=== PATIENT | female | born 1985 | race Caucasian/White ===

== ENCOUNTER 2017-12-06 17:05 | Inpatient (IN) | payer BC ==
[2017-12-06 18:09] VITALS: BMI 27.4
--- NOTE | 2017-12-06 18:58 | OBADHP ---
Datetime: 12/06/2017 18:45 IP Chief Complaint Other: intrauterine demise Admit Comment, IP Provider: Pt is at 23 wks [address] IUFD Saw Dr Kim x1 and had sono done abo ut 11/26/17 showing 21 wks with apparent some congenital anomalies and was given consult with perinato logist who counseled her and seen today by perinatologist for follow up and found with 23 wks IUFD. S ent to L/D for delivery Spoke with Dr Carey who confirmed above info and refers he did sono today and confirmed demise and no placenta previa and advised for misoprostone induction and to have placen speedy tissue sent on Hanks solution for chromosomal studies Discussed with pt and explained the situati on and the recomendations and understands and agreed Questions were answered to the best of my knowle dge and abilities. Extremities - PN: Normal Abdomen - PN: Abnormal Breast - PN: Not Done Lungs - PN: Normal Thyroid - PN: Normal HEENT - PN: Normal General - PN: Normal IP Fetus A Comments: IUFD FHR - Baseline A Provider: none Membranes, Provider: Intact Comments, ACOG Physical Exam: Abd soft fundus at umb NT Ext no calf tenderness Gestation - Est Wks by US: 23 wks IP Chief Complaint: Other NICHD Variability Prov Fetus A: n/a Genitourinary Exam: Normal DTRs - PN: Normal IP Adm Impression: , intrauterine ; Demise IP Admit Plan: Admit to unit; Initiate labor induction protocol
[2017-12-06 19:15] LABS: BASO % 0.5 % (0.0-2.0); EOS # 0.1 K/uL (0.0-0.7); EOS % 1.3 % (0.0-4.0); HEMOGLOBIN 11.4 g/dL (12.0-16.0); LYMPH # 1.9 K/uL (1.0-4.3); LYMPH % 28.2 % (20.0-40.0); MEAN CELL VOLUME 86.3 fl (81.0-99.0); MEAN CORPUSCULAR HEMOGLOBIN 29.7 pg (27.0-31.0); MEAN CORPUSCULAR HGB CONC 34.4 g/dL (33.0-37.0); MEAN PLATELET VOLUME 8.5 fl (7.2-11.7); MONO # 0.7 K/uL (0.0-0.8); MONO % 10.8 % (0.0-10.0); NEUT % 59.2 % (50.0-75.0); NRBC % 0.1 % (0.0-0.0); RBC 3.85 Mil/uL (3.80-5.20); RED CELL DISTRIBUTION WIDTH 15.3 % (11.5-14.5); WHITE BLOOD COUNT 6.7 K/uL (4.8-10.8)
[2017-12-06 19:25] LABS: INR 0.9
[2017-12-06 19:27] LABS: PARTIAL THROMBOPLASTIN TIME 28.8 Seconds (25.6-37.1)
[2017-12-06] MEDS ORDERED: Oxytocin 30 UNIT 30 UNITS/500 ML BAG IV ONE (19:41)
[2017-12-06] MEDS ORDERED: Magnesium Sulfate 4 gm/100 ml 4 GM/100 ML BAG IVPB ONE (21:37)
[2017-12-06 22:39] LABS: ALB/GLOB RATIO 1.2 (1.0-2.1); ALBUMIN 3.4 g/dL (3.5-5.0); ALT/SGPT 28 U/L (9-52); AST/SGOT 21 U/L (14-36); BLOOD UREA NITROGEN 8 mg/dl (7-17); CALCIUM 8.9 mg/dL (8.4-10.2); GFR NON-AFRICAN AMERICAN > 60
[2017-12-06] MEDS ORDERED: Magnesium Sul 40GM/1L SW 40 GM/1,000 ML ML IV ONE ×2 (22:58→23:58)
[2017-12-06] MEDS ORDERED: Nalbuphine 20 mg/ml Inj (1 ml) IVP PRN (23:13)
[2017-12-07] MEDS: Lactated Ringer's 1,000 ML IV SCH ×4 (03:00→23:23)
[2017-12-07] MEDS ORDERED: Fentanyl/Bupivacaine HCl 250 ML EPI ONE (03:05)
[2017-12-07] MEDS: OXYTOCIN/0.9 % NS 20 UNIT/1,000 ML BAG IV SCH ×3 (06:10→14:44)
[2017-12-07] MEDS ORDERED: Oxycodone/Acetaminophen 5/325 mg Tab PO PRN (06:29)
[2017-12-07] MEDS ORDERED: cefOXitin Sodium 1 GM in Sodium Chloride 0.9% 100 ML IVPB SCH (07:00)
--- NOTE | 2017-12-07 07:02 | OBDS ---
MATERNAL INFORMATION Maternal Complications: Other Other Maternal Complications: IUFD/Pre-eclampsia LABOR SUMMARY EDC: 04/07/2018 00:00 No. Babies in Womb: 0 LABOR INFORMATION Reason for Induction: Demise Cervical Ripening Agents: Cytotec @ (Annotations: 400 mcg applied by vaginally) Group B Beta Strep: Not Done Steroids Given: None Reason Steroids Not Administered: Not Applicable VAGINAL DELIVERY Episiotomy: None Laceration Extension: N/A Laceration Type: None Laceration Repair: Not Applicable Laceration Repair Note: n/A Sponge Count Correct: Yes Sharps Count Correct: N/A CSECTION DELIVERY Primary Indication: N/A Secondary Indication: N/A CSection Incision: N/A Uterine Closure: N/A
[2017-12-07 07:11] LABS: ALB/GLOB RATIO 1.2 (1.0-2.1); ALBUMIN 3.4 g/dL (3.5-5.0); ALT/SGPT 31 U/L (9-52); AST/SGOT 22 U/L (14-36); BLOOD UREA NITROGEN 5 mg/dl (7-17); CALCIUM 7.3 mg/dL (8.4-10.2); GFR NON-AFRICAN AMERICAN > 60
[2017-12-07] MEDS: cefOXitin IV 1 gm in Dextrose 1 GM/50 ML BAG IVPB SCH ×2 (09:00→17:30)
[2017-12-07 11:29] LABS: HEMOGLOBIN 11.7 g/dL (12.0-16.0); MEAN CELL VOLUME 85.9 fl (81.0-99.0); MEAN CORPUSCULAR HEMOGLOBIN 29.4 pg (27.0-31.0); MEAN CORPUSCULAR HGB CONC 34.2 g/dL (33.0-37.0); RBC 3.98 Mil/uL (3.80-5.20); RED CELL DISTRIBUTION WIDTH 14.7 % (11.5-14.5); WHITE BLOOD COUNT 12.6 K/uL (4.8-10.8)
[2017-12-07] MEDS ORDERED: Magnesium Sul 40GM/1L SW 40 GM/1,000 ML ML IV ONE (21:44)
[2017-12-08] MEDS: cefOXitin IV 1 gm in Dextrose 1 GM/50 ML BAG IVPB SCH (01:02)
--- NOTE | 2017-12-08 12:24 | OBPPN ---
Datetime: 12/08/2017 12:18 PP Pain Prov: Within normal limits PP Pain Prov comment: No SOB, chest or leg pains PP Nausea Prov: Denies PP Flatus Prov: Yes PP Nausea Prov comment: No headaches or visual issues PP Breasts Prov: Normal PP Lungs Prov: Normal PP Abdomen/Uterus Prov: Abnormal PP Lochia Prov: Normal PP Vulva/Perineum Prov: Normal PP CVA Tenderness Prov: Normal PP Extremities Prov: Normal PP C/S Incision Prov: Not Applicable PP Progress Prov: Not Applicable PP Comments Phys Exam Prov: breast not engorged, NT Uterus above sp NT Lockia min Ext no calf tende rness Burr in place draining clear fluids PP Impression Prov: Induced Hypertension PP Plan Prov: Continue present management PP Impression Other Prov: s/p delivery of demise and pp elevatedc BP PP Progress Note Prov: MgSO4 had been decreased and Norvasc started will increase diet and try to D/ C magnesium Discussed with pt and understands and agreed IP PP Procedures: None
--- NOTE | 2017-12-08 14:19 | OBDS ---
DELIVERY PERSONNEL Delivery Doctor: Rita Mg MD Scrub Nurse: Lorena Rodriguez Nat Instructor: Gretchen Phelps RN MATERNAL INFORMATION Delivery Anesthesia: Epidural Medications in Delivery: pitocin Estimated Blood Loss (ml): 200 Placenta Cultured: No Maternal Complications: None; Other Other Maternal Complications: IUFD/Pre-eclampsia RN Comments: pbaby transferred to next room since parents doesnt want to see baby at this time Provider Comments: Dr Mg present and pt delivered spontaneously a demise girl appears AG A, skin peeling noted no gross anomalies noted Placenta came out complete and sample was taken to pathology in Hanks solution for chromosomal studies Uterus contracted well Continue MgSO4 and katie l start profilactic antibiotics Repeat blood work ordered. LABOR SUMMARY EDC: 04/07/2018 00:00 No. Babies in Womb: 0 Attempted: No Labor Anesthesia: Epidural LABOR INFORMATION Reason for Induction: Demise Onset of Labor: 12/07/2017 02:00 Complete Dilatation: 12/07/2017 05:35 Cervical Ripening Agents: Cytotec @ Group B Beta Strep: Not Done Steroids Given: None Reason Steroids Not Administered: Not Applicable MEMBRANES Membranes Rupture Method: Spontaneous Rupture of Membranes: 12/07/2017 05:34 Length of Rupture (hrs): 0.05 Amniotic Fluid Color: Clear Amniotic Fluid Amount: Large Amniotic Fluid Odor: Normal STAGES OF LABOR Stage 1 hrs: 3 Stage 1 min: 35 Stage 2 hrs: 0 Stage 2 min: 2 Stage 3 hrs: 0 Stage 3 min: 1 Total Time in Labor hrs: 3 Total Time in Labor min: 38 VAGINAL DELIVERY Episiotomy: None Laceration Extension: N/A Laceration Type: None Laceration Repair: Not Applicable Laceration Repair Note: n/A Initial Vag Sponge Count: 0 Final Vag Sponge Count: 0 Initial Vag Sharps Count: 0 Final Vag Sharps Count: 0 Sponge Count Correct: Yes Sharps Count Correct: N/A CSECTION DELIVERY Primary Indication: N/A Secondary Indication: N/A CSection Incision: N/A Uterine Closure: N/A BABY A INFORMATION Delivery Date/Time: 12/07/2017 05:37 Method of Delivery: Vaginal Born in Route : No : N/A Forceps: N/A Vacuum Extraction: N/A Shoulder Dystocia : No SHOULDER DYSTOCIA BABY A Delivery Date/Time: 12/07/2017 05:37 PRESENTATION/POSITION BABY A Presentation: Breech PLACENTA INFORMATION BABY A Placenta Delivery Time : 12/07/2017 05:38 Placenta Method of Delivery: Spontaneous Placenta Status: Delivered SCORES BABY A Heart Rate 1 min: Absent Resp Effort 1 min: Absent Reflex Irritability 1 min: No Response Muscle Tone 1 min: Flaccid Color 1 min: Blue/Pale SCORE 1 MIN: 0 Heart Rate 5 min: Absent Resp Effort 5 min: Absent Reflex Irritability 5 min: No Response Muscle Tone 5 min: Flaccid Color 5 min: Blue/Pale SCORE 5 MIN: 0 INFORMATION BABY A Gestational Age at Delivery: 23.0 Gestational Status: Infant Outcome : Stillborn Condition : poor Infant Sex: Female IDENTIFICATION/MEDS BABY A Vitamin K Given : Not Given Erythromycin Given: Not Given WEIGHT/LENGTH BABY A Infant Birthweight (gms): 0.380 grams CORD INFORMATION BABY A No. Cord Vessels: 3 Nuchal Cord : N/A Cord Blood Taken: N/A Infant Suction: None
--- NOTE | 2017-12-08 14:30 | CP.PCM.CON ---
History of Present Illness - History of Present Illness History of Present Illness: THE PATIENT IS A 32 YEAR OLD FEMALE WHO DOESN'T HAVE ANY SIGNIFICANT PMH. SHE HAD PRE-TERM DEMISE AT 23 WEEKS GESTATION AND WAS ADMIITED FOR LABOR INDUCTION. SHE HAD HYPERTENSION AFTERWARDS UP TO 155/105 AND IT WAS NOT CONTROLLED WELL WITH IV MAGNESIUM SULPHATE AND I WAS CALLED LAST EVENING BY DR DUKE. SHE VAS GIVEN 5 MGS OF AMLODIPINE TWICE LAST NIGHT. HER BLOOD PRESSURE WAS ELEVATED THIS MORNING AND 5 MGS AMLIODIONE WAS GIVEN AND HER BLOOD PRESSURE WAS 140/90 AT ABOUT 1 PM. SHE DENIES ANY CHEST PAIN, PALPITATIONS OR SOB. SHE FEELS BETTER TODAY. Past Patient History - Past Social History Smoking Status: Never Smoked Meds Allergies/Adverse Reactions: Allergies Allergy/AdvReac Type Severity Reaction Status Date / Time No Known Allergies Allergy Verified 12/06/17 18:10 - Medications Medications: Current Medications Amlodipine Besylate (Norvasc) 5 mg PO DAILY [facility] Last Admin: 12/08/17 09:45 Dose: 5 mg Docusate Sodium (Colace) 100 mg PO BID [facility] Last Admin: 12/07/17 17:50 Dose: 100 mg OXYTOCIN/0.9 % NS (Oxytocin 20 Unit/1000 Ml-Ns) 20 unit in 1,000 mls @ 125 mls/ hr IV .Q8H [facility] PRN Reason: Protocol Last Admin: 12/07/17 14:44 Dose: Not Given Lactated Ringer's (Lactated Ringer's) 1,000 mls @ 75 mls/hr IV .[id number] [facility] Last Admin: 12/07/17 23:23 Dose: 75 mls/hr Magnesium Sulfate (Magnesium Sul 40gm/1l Sw) 40 gm in 1,000 mls @ 50 mls/hr IV .Q20H ONE PRN Reason: 2 GM/HR Stop: 12/08/17 17:43 Last Admin: 12/07/17 21:58 Dose: 50 mls/hr Ibuprofen (Motrin Tab) 600 mg PO Q6 PRN PRN Reason: Pain, Mild (1-3) Oxycodone/Acetaminophen (Percocet 5/325 Mg Tab) 1 tab PO Q4 PRN PRN Reason: Pain, moderate (4-7) Stop: 12/10/17 06:30 Physical Exam - Respiratory Exam Respiratory Exam: Clear to Auscultation Bilateral - Cardiovascular Exam Cardiovascular Exam: REGULAR RHYTHM, +S1, +S2 - Extremities Exam Additional comments: TRACE EDEMA OF LE - Additional Findings Additional findings: EKG SINUS WITHOUT ECTOPY(READ INCORRECTLY HAVING A PVC BY THE MACHINE BUT THIS WAS FROM [employer]. Results - Vital Signs Recent Vital Signs: Last Vital Signs Temp Pulse 79 12/08/17 09:45 Resp BP 141/94 H 12/08/17 09:45 Pulse Ox - Labs Result Diagrams: 12/07/17 10:50 12/07/17 06:45 Labs: Laboratory Results - last 24 hr 12/07/17 20:55 Magnesium 5.7 H* D Assessment & Plan - Assessment and Plan (Free Text) Assessment: PRE-TERM DEMISE WITH LABOR INDUCTION HYPERTENSION Plan: WILL CONTINUE AMLODIPINE 5 MGS PO DAILY PATIENT DISCUSSED WITH DR DUKE AND HE WILL STOP THE MAGNESIUM SULPHATE AND CONTINUE THE AMLODIPINE
[2017-12-08] MEDS ORDERED: Magnesium Sul 40GM/1L SW 40 GM/1,000 ML ML IV ONE (15:26)
--- NOTE | 2017-12-09 09:30 | OBPPN ---
Datetime: 12/09/2017 09:26 PP Pain Prov: Within normal limits PP Pain Prov comment: No SOB, chest or leg pains PP Nausea Prov: Denies PP Flatus Prov: Yes PP Nausea Prov comment: Denies headaches or visual disturbances PP Breasts Prov: Normal PP Lungs Prov: Normal PP Abdomen/Uterus Prov: Abnormal PP Lochia Prov: Normal PP Vulva/Perineum Prov: Normal PP CVA Tenderness Prov: Normal PP Extremities Prov: Normal PP C/S Incision Prov: Not Applicable PP Progress Prov: Not Applicable PP Comments Phys Exam Prov: breast soft NE; Abd soft ND fundus firm above sp NT Ext no edema or calf tenderness DTR 2+ sym. PP Impression Prov: Normal progression PP Plan Prov: Discharge PP Impression Other Prov: PIH PP Progress Note Prov: Case had been discussed with hose sprayer who refers did EKG and normal and o k to d/C home on po Norvasc and he will also follow in office 1wk Discussed with pt understands and a greed Instrucitons given IP PP Procedures: None
--- NOTE | 2017-12-09 09:35 | OBDCSUM ---
Datetime: 12/09/2017 09:31 Discharged to, Provider: Home Follow up at, Provider: Dr Kim Disch Instr Activity: Bedrest; May be up to bathroom; May be up for meals; May Shower Disch Instr Diet: Regular Discharge Instructions, Provider: Specific instructions as noted Discharge Diagnosis, Provider: Preeclampsia; Delivery Discharge Time: 12/09/2017 09:31 Follow up in weeks, Provider: Contraception discussed, Prov: Yes Disch Activity Restrictions: No exercising; No lifting; No driving; Minimize walking; Minimize stair -climbing; No sexual activity; Nothing in vagina - [place], tampons, douche Discharge Comment, Provider: Rx for Norvasc 5mg given and pt also will follow up wt Dr Kruger 1 wk Discharge Diagnosis Prov Other: IUFD at 23 wks/ PIH Contraception after Delivery: Undecided Datetime: 12/09/2017 09:05 Discharged to, Provider: Home Follow up at, Provider: Dr. Kim Disch Instr Activity: Normal activity Disch Instr Diet: Regular Discharge Time: 12/09/2017 09:07 Follow up in weeks, Provider: 12/11/17 Disch Activity Restrictions: No sexual activity; Nothing in vagina - [place], tampons, douche
--- NOTE | 2017-12-09 10:05 | CARD ---
APPROVED REPORT Date of service: 12/08/2017 EKG Measurement Heart [id number] <Conclusion> Sinus rhythm with sinus arrhythmia with occasional premature ventricular complexes Nonspecific T wave abnormality Abnormal ECG
[2017-12-09 15:17] VITALS: BP 145/96; PULSE 62; RESP 18; TEMP 98.6; O2SAT 100
== END 2017-12-09 09:15 | disposition home or self-care (01) | DRG 774 ==
LOC: H.EROB2 17:05 → H.L&D 18:17
PROVIDERS: ADMIT Specialist; ATTEND Specialist
PROC: 10E0XZZ Delivery of Products of Conception, External Approach (ICD-10-PCS; principal; 2017-12-07)
PROC: 4A1HXCZ Monitoring of Products of Conception, Cardiac Rate, External Approach (ICD-10-PCS; 2017-12-07)
DX: O60.12X0 Preterm labor second trimester with preterm delivery second trimester, not applicable or unspecified (principal); O13.5 Gestational [pregnancy-induced] hypertension without significant proteinuria, complicating the puerperium; O36.4XX0 Maternal care for intrauterine death, not applicable or unspecified; Z37.1 Single stillbirth; Z3A.23 23 weeks gestation of pregnancy

== ENCOUNTER 2018-07-10 00:25 | Emergency (ER) | payer BC ==
[2018-07-10 00:25] VITALS: BMI 27.4
[2018-07-10 00:55] VITALS: RESP 16; O2SAT 100
[2018-07-10] MEDS ORDERED: Tetracaine 0.5% Ophth 2 ML BOTTLE ONE (01:55)
[2018-07-10] MEDS ORDERED: Fluorescein 1 mg Ophthalmic Strip ONE (01:56)
[2018-07-10] MEDS ORDERED: Acetaminophen-Codeine 300/30 mg Tab PO ONE (02:03)
--- NOTE | 2018-07-10 02:09 | ED PDOC ---
HPI: Eye Injury/Pain Time Seen by Provider: 07/10/18 01:06 Chief Complaint (Nursing): Eye Problem Chief Complaint (Provider): left eye pain History Per: Patient History/Exam Limitations: no limitations Onset/Duration Of Symptoms: Hrs Current Symptoms Are (Timing): Still Present Associated Symptoms: Pain, FB Sensation Additional Complaint(s): 33 y/o female presents for evaluation of left eye pain and irritation x 5 hours. Patient reports some discomfort while her contacts were in, but states pain worsened after she removed the contact. Patient states she feels like something is "stuck in her eye". Denies headache, vision changes, drainage. States these contacts are only 1 week old Past Medical History Reviewed: Historical Data, Nursing Documentation, Vital Signs Vital Signs: Last Vital Signs Temp 97.4 F L 07/10/18 00:51 Pulse 82 07/10/18 00:51 Resp 16 07/10/18 00:51 BP 143/104 H 07/10/18 00:51 Pulse Ox 100 07/10/18 00:51 - Medical History PMH: No Chronic Diseases Denies: Depression, Diabetes, HTN - Surgical History Surgical History: No Surg Hx - Family History Family History: States: No Known Family Hx - Living Arrangements Living Arrangements: With Family - Home Medications Home Medications: Ambulatory Orders Medication Instructions Recorded Pnv with Ca,No.72/Iron/FA [Pnv 1 tab PO DAILY 12/06/17 Plus Multivit Tab] Ofloxacin Ophth 0.3% [Ocuflox 2 drop OS QID #1 bottle 07/10/18 Ophth 0.3%] - Allergies Allergies/Adverse Reactions: Allergies Allergy/AdvReac Type Severity Reaction Status Date / Time No Known Allergies Allergy Verified 12/06/17 18:10 Review of Systems ROS Statement: Except As Marked, All Systems Reviewed And Found Negative Eyes: Positive for: Pain (left), Redness (left) Physical Exam - Reviewed Nursing Documentation Reviewed: Yes Vital Signs Reviewed: Yes - Physical Exam Appears: Positive for: Well, Non-toxic, Uncomfortable Head Exam: Positive for: ATRAUMATIC, NORMAL INSPECTION, NORMOCEPHALIC Skin: Positive for: Normal Color Eye Exam: Positive for: EOMI, PERRL, Conjunctival injection (left). 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
[2018-07-10] MEDS ORDERED: Acetaminophen-Codeine 300/30 mg Tab ONE (02:30)
[2018-07-10 03:15] VITALS: BP 122/75; PULSE 81; TEMP 98.3
== END 2018-07-10 02:45 | disposition home or self-care (01) ==
LOC: H.ER 00:25
DX: S05.02XA Injury of conjunctiva and corneal abrasion without foreign body, left eye, initial encounter (principal); X58.XXXA Exposure to other specified factors, initial encounter; Y92.89 Other specified places as the place of occurrence of the external cause